=== PATIENT | female | born 1960 | race Caucasian/White ===

== ENCOUNTER 2019-05-25 06:28 | Day surgery (SDC) | payer OTHER, BC ==
[2019-05-25] MEDS ORDERED: Ketorolac 30 MG/ML SDV IVPUSH ONE (06:29)
[2019-05-25] MEDS ORDERED: fentaNYL 100 MCG/2 ML SDV IV ONE (06:29)
[2019-05-25] MEDS ORDERED: Propofol 200 MG/20 ML SDV IV ONE (06:29)
[2019-05-25] MEDS ORDERED: Midazolam 1 MG/ML 2 ML SDV IV ONE (06:29)
[2019-05-25] MEDS ORDERED: Ondansetron 4 MG/2 ML SDV IVPUSH ONE (06:29)
[2019-05-25] MEDS ORDERED: Lidocaine 2% 5 ML SDV INJECT ONE (06:29)
[2019-05-25] MEDS ORDERED: Sodium Chloride 0.9% 10 ML Syringe FLUSH PRN (06:30)
[2019-05-25] MEDS ORDERED: Lactated Ringers 1,000 ML IV SCH (06:30)
[2019-05-25] MEDS ORDERED: Gabapentin 300 MG Cap PO ONE (07:28)
[2019-05-25] MEDS ORDERED: Acetaminophen 500 MG Tab PO ONE (07:28)
[2019-05-25] MEDS ORDERED: ceFAZolin 2 GM in Premix Bag 1 BAG IV ONE (08:00)
[2019-05-25] MEDS ORDERED: Dexamethasone 4 MG/ML SDV ONE (08:26)
[2019-05-25] MEDS ORDERED: Lidocaine 1% with EPINEPHrine 1:100,000 20 ML MDV ONE (08:26)
--- NOTE | 2019-05-25 08:50 | PCM.OPNOTE ---
- General Post-Op/Procedure Note Date of Surgery/Procedure: 05/25/19 Operative Procedure(s): right medial epicondylectomy Pre Op Diagnosis: right elbow medial epicondylitis Post-Op Diagnosis: Same Anesthesia Technique: General LMA Primary Surgeon: Stevie Salinas Consumer Affairs Director: Zora Spivey EBL in mLs: 10 Complications: None Condition: Good
--- NOTE | 2019-05-25 11:04 | OR ---
DATE OF OPERATION: 05/25/2019 SURGEON: Stevie Salinas DO PREOPERATIVE DIAGNOSIS: Right medial epicondylitis. POSTOPERATIVE DIAGNOSIS: Right medial epicondylitis. PROCEDURE: Right medial condylectomy. [employer] F[employer]OR REFINISHER: Zora Spivey NP. Nurse practitioner, Zora Spivey NP, played an essential role in assisting in this case, helping to position the patient, retract structures as needed, as well as suturing and cutting sutures as indicated. Her presence improved patient's safety and decreased operative time. ANESTHESIA: General LMA. FLUID: Lactated Ringer solution. ESTIMATED BLOOD LOSS: 10 mL. COMPLICATIONS: None. SPECIMEN: None. DISCHARGE DISPOSITION: Stable to PACU. HISTORY AND INDICATIONS FOR THE PROCEDURE: The patient was seen preoperatively in the clinic. She had failed nonoperative treatment including injections. Risks and goals of the procedure were explained to the patient. Informed consent was obtained. DETAILS OF PROCEDURE: The patient was seen preoperatively by myself and the Anesthesia staff within the preoperative holding area, where the operative site was marked. She was brought to the operative suite by Anesthesia staff, where general anesthesia was administered. All extremities were found to be well padded. A well-padded tourniquet was placed on the right arm, but never inflated during the procedure. The right upper extremity was then prepped and draped in a sterile manner. Time-out was called identifying the correct patient, the correct procedure, the correct site, and antibiotics were begin within appropriate time. An incision was made over the right medial condyle of the humerus extending proximally about 3 cm. Bleeding was controlled by bipolar electrocautery during the case. I then used a small Weitlaner for retraction and then used Metzenbaum and pickups to dissect down to the proximal condyle and epicondyle. After this was exposed, I then used rongeur to remove the angiofibroblastic tissue. After this had been accomplished, I then cauterized a few small bleeders. I then applied irrigation and then some dexamethasone and then closed subcutaneously with 2-0 Vicryl interrupted sutures followed by 3-0 nylon interrupted mattress sutures. We then applied Betadine-soaked Adaptic fluffs and an Xavier wrap. The patient was allowed to awaken from general anesthesia and taken to the PACU in stable condition. /[id number] BS/MODL
== END 2019-05-25 10:10 | disposition home or self-care (01) ==
LOC: FB.SDS 06:28
PROVIDERS: ATTEND Orthopaedic Surgery
DX: M77.01 Medial epicondylitis, right elbow (principal); E78.00 Pure hypercholesterolemia, unspecified; Z87.891 Personal history of nicotine dependence; Z91.040 Latex allergy status; Z91.09 Other allergy status, other than to drugs and biological substances; Z88.8 Allergy status to other drugs, medicaments and biological substances; Z79.899 Other long term (current) drug therapy; Z79.84 Long term (current) use of oral hypoglycemic drugs
CPT/HCPCS: 24140; A9270; J0690; J1100; J7120; J1885; J2001; J2250; J2405; J2704; J3010